=== PATIENT | male | born 1930 | race Caucasian/White ===

== ENCOUNTER 2016-11-26 22:29 | Emergency (ER) | payer OTHER ==
[~2016-11-26] VITALS: Ht 193 cm; Wt 90.0 kg
[~2016-11-26 22:29] MED LIST: ALPH E PO; BYSTOLIC5 MG PO; DOXAZOSIN MESYLA2 MG PO; GLUCOSAMINE CH1 EAC1 PO; LOTENSIN20 MG PO; MINIPRIN81 MG PO; MULTIVITAMIN1 EAC1 PO; OMEPRAZOLE40 M1 PO; TOPROL XL50 MG PO
[2016-11-27 01:59] VITALS: BP 169/65
== END 2016-11-27 02:00 | disposition home or self-care (01) ==
LOC: EME 22:29 → RME 22:29
DX: I10 Essential (primary) hypertension (principal); Z87.891 Personal history of nicotine dependence
CPT/HCPCS: 93005; 99281; 99284

== ENCOUNTER 2017-04-14 18:24 | Emergency (ER) | payer OTHER ==
[~2017-04-14] VITALS: Ht 193 cm; Wt 87.2 kg
[~2017-04-14 18:24] MED LIST changes: +HYDROCODON-ACE1 EAC7 PO; +LOTENSIN40 MG PO; +TENORMIN25 MG PO
[2017-04-14 19:44] LABS: HEMATOCRIT 33.7 % (38.0-50.0); MCH 31.2 PG (29.0-34.0); MCHC 32.6 G/DL (30.0-36.0); MCV 95.5 FL (86-99); MEAN PLAT.VOLUME 10.6 uM^3 (9.0-12.4); PLATELET COUNT 161 K/uL (156-360); RBC DIS.WIDTH-CV 13.3 % (11.8-14.6); RBC DIS.WIDTH-SD 46.8 % (39-53); RED BLOOD COUNT 3.53 M/uL (4.00-5.50); WHITE BLOOD COUNT 8.4 K/uL (4.1-10.2)
[2017-04-14 20:03] LABS: CHLORIDE 107 mEq/L (99-109); POTASSIUM 4.5 mEq/L (3.7-5.4); SODIUM 140 mEq/L (136-147)
[2017-04-14 20:04] LABS: GLUCOSE 102 mg/dL (70-99)
[2017-04-14 20:06] LABS: ANION GAP 8 MEQ/L (2-14)
[2017-04-14 20:08] LABS: GFR ESTIMATE (CALCULATED) > 59 mL/min/
[2017-04-14 20:09] LABS: UREA NITROGEN (BUN) 12 mg/dL (9-23)
[2017-04-14 20:48] LABS: INTER. NORMALIZED RATIO 1.1; PROTHROMBIN TIME 11.1 (9.2-11.2)
[2017-04-14] MEDS ORDERED: PERCOCET 5/31 TABLET PO (21:39)
[2017-04-14 21:59] VITALS: BP 151/67
== END 2017-04-14 22:43 | disposition home or self-care (01) ==
LOC: EME 18:24
PROVIDERS: Emergency Medicine
DX: G89.18 Other acute postprocedural pain (principal); I10 Essential (primary) hypertension; R51 Headache; M54.2 Cervicalgia; K21.9 Gastro-esophageal reflux disease without esophagitis; Z87.891 Personal history of nicotine dependence
CPT/HCPCS: 70496; 70498; 80048; 85027; 85610; 99281; 99285

== ENCOUNTER 2017-04-25 15:01 | Emergency (ER) | payer OTHER ==
[~2017-04-25] VITALS: Ht 193 cm; Wt 86.9 kg
[~2017-04-25 15:01] MED LIST changes: +PERCOCET 5/31 TABLET PO
[2017-04-25] MEDS ORDERED: AMLODIPINE BESYL5 MG PO (15:52)
[2017-04-25 17:28] LABS: HEMATOCRIT 37.9 % (38.0-50.0); MCH 31.4 PG (29.0-34.0); MCHC 32.5 G/DL (30.0-36.0); MCV 96.7 FL (86-99); MEAN PLAT.VOLUME 9.8 uM^3 (9.0-12.4); RBC DIS.WIDTH-CV 13.4 % (11.8-14.6); RBC DIS.WIDTH-SD 47.8 % (39-53); RED BLOOD COUNT 3.92 M/uL (4.00-5.50); WHITE BLOOD COUNT 7.4 K/uL (4.1-10.2)
[2017-04-25 17:29] LABS: PLATELET COUNT 230 K/uL (156-360)
[2017-04-25 17:33] LABS: CHLORIDE 104 mEq/L (99-109); POTASSIUM 4.2 mEq/L (3.7-5.4); SODIUM 141 mEq/L (136-147)
[2017-04-25 17:35] LABS: GLUCOSE 88 mg/dL (70-99)
[2017-04-25 17:36] LABS: ANION GAP 10 MEQ/L (2-14)
[2017-04-25 17:39] LABS: GFR ESTIMATE (CALCULATED) > 59 mL/min/; UREA NITROGEN (BUN) 16 mg/dL (9-23)
[2017-04-25 17:45] LABS: TROP-I INTERPRETATION NEGATIVE; TROPONIN-I < 0.01 ng/mL (0.0-0.30)
[2017-04-25] MEDS ORDERED: LASIX20 MG PO (19:20)
[2017-04-25] MEDS ORDERED: CARDURA2 M1 PO (19:20)
[2017-04-25 20:09] VITALS: BP 170/70
== END 2017-04-25 20:13 | disposition home or self-care (01) ==
LOC: EME 15:01
PROVIDERS: Physician Assistant Medical
DX: I10 Essential (primary) hypertension (principal); R60.0 Localized edema; Z87.891 Personal history of nicotine dependence; K21.9 Gastro-esophageal reflux disease without esophagitis
CPT/HCPCS: 71020; 80048; 83880; 84484; 85027; 93005; 99281; 99285

== ENCOUNTER → 2017-07-04 | Outpatient (CLI) | payer OTHER ==
[~2017-07-04] MED LIST changes: +AMLODIPINE BESYL5 MG PO; +CARDURA2 M1 PO; +LASIX20 MG PO
== END | disposition home or self-care (01) ==
DX: R49.0 Dysphonia (principal); R13.11 Dysphagia, oral phase; R13.13 Dysphagia, pharyngeal phase; Z98.890 Other specified postprocedural states
CPT/HCPCS: 92611 GN; G8996 GN; G8997 GN; G8998 GN

== ENCOUNTER → 2017-10-08 | Outpatient (CLI) | payer OTHER | END | disposition home or self-care (01) | DX: R13.12 Dysphagia, oropharyngeal phase (principal); R49.0 Dysphonia | CPT/HCPCS: 92611 GN; G8996 GN; G8997 GN; G8998 GN ==

== ENCOUNTER 2018-05-13 08:31 | Emergency (ER) | payer OTHER ==
[~2018-05-13] VITALS: Ht 190.5 cm; Wt 77.2 kg
[2018-05-13 09:34] LABS: HEMATOCRIT 29.6 % (38.0-50.0); HEMOGLOBIN 10.1 G/DL (12.5-16.6); MCH 31.9 PG (29.0-34.0); MCHC 34.1 G/DL (30.0-36.0); MCV 93.4 FL (86-99); PLATELET COUNT 156 K/uL (156-360); RBC DIS.WIDTH-CV 14.6 % (11.8-14.6); RBC DIS.WIDTH-SD 50.3 % (39-53); RED BLOOD COUNT 3.17 M/uL (4.00-5.50); WHITE BLOOD COUNT 11.9 K/uL (4.1-10.2)
[2018-05-13 09:44] LABS: CHLORIDE 105 mEq/L (99-109); POTASSIUM 4.2 mEq/L (3.7-5.4); SODIUM 139 mEq/L (136-147)
[2018-05-13 09:46] LABS: GLUCOSE 113 mg/dL (70-99)
[2018-05-13 09:50] LABS: CREATININE 1.1 mg/dL (0.6-1.3); GFR ESTIMATE (CALCULATED) > 59 mL/min/ (58.99-99999)
[2018-05-13 09:51] LABS: UREA NITROGEN (BUN) 29 mg/dL (9-23)
[2018-05-13 11:53] VITALS: BP 151/59
== END 2018-05-13 11:56 | disposition home or self-care (01) ==
LOC: EME 08:31
PROVIDERS: Family Medicine
DX: M54.2 Cervicalgia (principal); I10 Essential (primary) hypertension; Z88.0 Allergy status to penicillin
CPT/HCPCS: 72125; 80048; 85027; 99281; 99285; J3010